=== PATIENT | female | born 1950 | race Two or more races ===

== ENCOUNTER 2017-12-11 06:57 | Day surgery (SDC) | payer OTHER ==
[~2017-12-11 06:57] MED LIST: AVAPRO300 MG PO; FORTAMET1000 MG PO; GABAPENTIN300 MG PO; JANUVIA25 MG PO; LASIX20 MG PO; ZOCOR5 MG PO
== END 2017-12-11 17:45 | disposition home or self-care (01) ==
LOC: CIR.AMB 06:57
DX: M24.542 Contracture, left hand (principal)